=== PATIENT | female | born 1980 | race Caucasian/White ===

== ENCOUNTER 2023-09-07 02:04 | Emergency (ER) | payer MEDICAID ==
[2023-09-07] MEDS: methylPREDNISolone Sodium Succinate 125 MG/2 ML SDV IVPUSH ONE (03:05)
[2023-09-07] MEDS: Ketorolac 30 MG/ML SDV IVPUSH ONE (03:09)
[2023-09-07] MEDS: Doxycycline 200 MG in Sodium Chloride 0.9% 250 ML IV ONE (03:24)
== END 2023-09-07 06:10 | disposition home or self-care (01) ==
LOC: JP.ED 02:04
DX: K04.7 Periapical abscess without sinus (principal); Z88.1 Allergy status to other antibiotic agents; Z88.0 Allergy status to penicillin; Z88.2 Allergy status to sulfonamides; Z88.5 Allergy status to narcotic agent; Z88.8 Allergy status to other drugs, medicaments and biological substances
CPT/HCPCS: 96365; 96366; 96375; 99284; J1885; J2930; J3490; J7050; 99282